=== PATIENT | female | born 1955 | race Hispanic/Latino ===

== ENCOUNTER 2024-10-31 08:32 | Emergency (ER) | payer MEDICARE ==
[~2024-10-31] VITALS: Ht 152.4 cm; Wt 68.0 kg
[2024-10-31 08:56] VITALS: BP 140/61
[2024-10-31 09:00] VITALS: BP 138/71
[2024-10-31 09:15] VITALS: BP 123/65
== END 2024-10-31 09:29 | disposition home or self-care (01) ==
LOC: ED 08:32
DX: E11.9 Type 2 diabetes mellitus without complications (principal); I10 Essential (primary) hypertension; K74.60 Unspecified cirrhosis of liver; Z79.84 Long term (current) use of oral hypoglycemic drugs